=== PATIENT | female | born 1980 | race African-American/Black ===

== ENCOUNTER 2017-02-07 21:07 | Emergency (ER) | payer OTHER ==
[2017-02-07 22:40] VITALS: BP 127/75
== END 2017-02-07 22:40 | disposition home or self-care (01) ==
LOC: ED 21:07
DX: L25.9 Unspecified contact dermatitis, unspecified cause (principal); B35.9 Dermatophytosis, unspecified; L50.9 Urticaria, unspecified; G43.909 Migraine, unspecified, not intractable, without status migrainosus

== ENCOUNTER 2018-02-05 11:27 | Emergency (ER) | payer OTHER ==
[~2018-02-05] VITALS: Ht 149.9 cm; Wt 81.6 kg
[2018-02-05 13:50] VITALS: BP 121/73
== END 2018-02-05 13:50 | disposition home or self-care (01) ==
LOC: ED 11:27
DX: M54.5 Low back pain (principal); G43.909 Migraine, unspecified, not intractable, without status migrainosus; V43.52XA Car driver injured in collision with other type car in traffic accident, initial encounter; Y93.I9 Activity, other involving external motion; Y92.488 Other paved roadways as the place of occurrence of the external cause; Y99.8 Other external cause status

== ENCOUNTER 2020-05-01 17:19 | Emergency (ER) | payer OTHER, BC ==
[~2020-05-01] VITALS: Ht 152.4 cm; Wt 65.3 kg
[2020-05-01 17:40] VITALS: Ht 152.4 cm; Wt 65.3 kg
[2020-05-01 21:00] VITALS: BP 119/70
== END 2020-05-01 21:00 | disposition home or self-care (01) ==
LOC: ED 17:19
DX: S39.012A Strain of muscle, fascia and tendon of lower back, initial encounter (principal); S16.1XXA Strain of muscle, fascia and tendon at neck level, initial encounter; G43.909 Migraine, unspecified, not intractable, without status migrainosus; V49.9XXA Car occupant (driver) (passenger) injured in unspecified traffic accident, initial encounter; Y93.I9 Activity, other involving external motion; Y92.413 State road as the place of occurrence of the external cause; Y99.8 Other external cause status
CPT/HCPCS: J1885